=== PATIENT | female | born 2005 | race Caucasian/White ===

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

== ENCOUNTER 2024-01-12 17:11 | Emergency (ER) | payer OTHER, SELFPAY ==
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
[2024-01-12 17:15] VITALS: BP 132/78; PULSE 96; RESP 16; TEMP 37; O2SAT 99
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
[2024-01-12] MEDS: KETOROLAC 30 MG/ML VIAL (*BKC) IM (19:51)
[2024-01-12 19:58] VITALS: BP 117/68; PULSE 80; RESP 16; TEMP 36.5; O2SAT 100
== END 2024-01-12 20:00 | disposition home or self-care (01) ==
PROVIDERS: Emergency Provider Emergency Medicine; PCP Pediatrics
DX: S06.0X0A Concussion without loss of consciousness, initial encounter (principal); M79.642 Pain in left hand; V89.2XXA Person injured in unspecified motor-vehicle accident, traffic, initial encounter
CPT/HCPCS: 73140; 96372; 99283; J1885